=== PATIENT | male | born 1950 | race Caucasian/White ===

== ENCOUNTER 2024-07-17 08:38 | Inpatient (IN) | payer MEDICARE, MEDICAID ==
[~2024-07-17] VITALS: Ht 170.2 cm; Wt 65.8 kg
[2024-07-17] MEDS: ACETAMINOPHEN 325MG TABLET PO ONE (09:07)
[2024-07-17 09:24] LABS: BASOPHILS % 0.7 % (0.0-2.0); HEMATOCRIT. 42.2 % (42.0-52.0); HEMOGLOBIN. 14.2 g/dL (14.0-18.0); LYMPHOCYTES % 19.3 % (20.0-50.0); MEAN CORPUSCULAR HEMOGLOBIN 31.3 pg (28.0-32.0); MEAN CORPUSCULAR HGB CONC 33.6 g/dL (31.0-37.0); MEAN CORPUSCULAR VOLUME 93.1 fL (80.0-94.0); MEAN PLATELET VOLUME 8.7 fl (7.4-10.4); PLATELET 171 x1000/uL (130-400); RED BLOOD CELL COUNT 4.53 mill/uL (4.7-6.1); RED CELL DISTRIBUTION WIDTH 13.5 % (11.6-14.6)
[2024-07-17 09:29] LABS: CHLORIDE 110 mEq/L (98-107); POTASSIUM 4.3 mEq/L (3.5-5.1); SODIUM 144 mEq/L (136-145)
[2024-07-17 09:30] LABS: CARBON DIOXIDE 33 mEq/L (21-32)
[2024-07-17 09:31] LABS: CALCIUM 9.5 mg/dL (8.7-10.4)
[2024-07-17 09:35] LABS: CREATININE 0.9 mg/dL (0.6-1.3); GLUCOSE 82 mg/dL (70-105)
[2024-07-17 09:36] LABS: UREA NITROGEN BLOOD 17 mg/dL (9-23)
[2024-07-17 09:37] LABS: ALANINE AMINOTRANSFERASE 22 IU/L (10-49); ASPARTATE AMINOTRANSFERASE 38 IU/L (<34)
[2024-07-17 09:38] LABS: BILIRUBIN TOTAL 0.4 mg/dL (0.1-1.0); PROTEIN TOTAL 7.2 g/dL (6.0-8.3)
[2024-07-17] MEDS ORDERED: ONDANSETRON HCL 4MG/2ML INJ IV PRN (10:15)
[2024-07-17] MEDS ORDERED: IPRATROPIUM/ALBUTEROL 0.5-3(2.5)MG/3ML NEB HHN PRN (10:15)
[2024-07-17] MEDS ORDERED: GUAIFENESIN 200MG/10ML SUGAR FREE UDC PO PRN (10:15)
[2024-07-17] MEDS ORDERED: DOCUSATE SODIUM 100MG CAPSULE PO PRN (10:15)
[2024-07-17] MEDS ORDERED: SODIUM CHLORIDE 0.9% 1,000 ML IV SCH (10:15)
[2024-07-17] MEDS ORDERED: CLONIDINE 0.1MG TABLET PO PRN (10:15)
[2024-07-17] MEDS ORDERED: ACETAMINOPHEN 325MG TABLET PO PRN (10:15)
[2024-07-17] MEDS ORDERED: DEXTROSE 50% WATER 50ML SYRINGE IV PRN (10:30)
[2024-07-17 11:56] LABS: TRIGLYCERIDE 61 mg/dL (0-150)
[2024-07-17 11:57] LABS: LDL CHOLESTEROL 72 mg/dL (5-100)
[2024-07-17 11:58] LABS: CHOLESTEROL 176 mg/dL (<200); HDL CHOLESTEROL 99 mg/dL (>55); PHOSPHORUS 2.7 mg/dL (2.5-4.9)
[2024-07-17 12:18] LABS: HEPATITIS B SURFACE ANTIGEN NEGATIVE (Negative)
[2024-07-17 12:39] LABS: HEPATITIS A AB IGM NEGATIVE (Negative)
[2024-07-17 12:40] LABS: HEPATITIS B CORE AB IGM NEGATIVE (Negative); HEPATITIS C AB NON REACTIVE (Neg) (Negative)
[2024-07-17] MEDS: BLOOD SUGAR DIAGNOSTIC STRIP TEST SCH (13:19)
[2024-07-17] MEDS: INSULIN LISPRO 100 UNITS/ML SUBCUT SCH (13:20)
[2024-07-17] MEDS: DEXT 5%/0.45% NACL 1000ML 1,000 ML IV SCH (13:24)
[2024-07-17] MEDS ORDERED: ENOXAPARIN 40MG/0.4ML SYR SUBCUT SCH (16:00)
[2024-07-17 16:26] LABS: PROTHROMBIN TIME 10.8 sec (9.6-11.0)
[2024-07-17 16:29] LABS: TROPONIN I HIGH SENSITIVITY 40 ng/L (3.0-53)
[2024-07-17 16:30] LABS: CREATINE KINASE 232 IU/L (46-171)
[2024-07-17 20:00] VITALS: BP 163/78; PULSE 79; RESP 18; TEMP 36.44736; TEMP 36.4736; O2SAT 96
[2024-07-17] MEDS: FAMOTIDINE 20MG TABLET PO SCH (21:00)
[2024-07-18 00:11] VITALS: BP 149/69; PULSE 82; RESP 18; TEMP 36.55848; O2SAT 96
[2024-07-18 00:45] LABS: TROPONIN I HIGH SENSITIVITY 38 ng/L (3.0-53)
[2024-07-18 00:46] LABS: CREATINE KINASE 206 IU/L (46-171)
[2024-07-18 04:00] VITALS: BP 167/75; PULSE 75; RESP 20; TEMP 36.72516; O2SAT 96
[2024-07-18 06:28] LABS: HEMATOCRIT 45.9 % (42.0-52.0); HEMOGLOBIN 15.3 g/dL (14.0-18.0); MEAN CORPUSCULAR HEMOGLOBIN 30.9 pg (28.0-32.0); MEAN CORPUSCULAR HGB CONC 33.4 g/dL (31.0-37.0); MEAN CORPUSCULAR VOLUME 92.4 fL (80.0-94.0); PLATELET 158 x1000/uL (130-400); RED BLOOD CELL COUNT 4.97 mill/uL (4.7-6.1); RED CELL DISTRIBUTION WIDTH 13.5 % (11.6-14.6); WHITE BLOOD COUNT 9.7 x1000/uL (4.5-11.0)
[2024-07-18 06:37] LABS: CHLORIDE 104 mEq/L (98-107); POTASSIUM 3.9 mEq/L (3.5-5.1); SODIUM 136 mEq/L (136-145)
[2024-07-18 06:38] LABS: CALCIUM 9.1 mg/dL (8.7-10.4); CARBON DIOXIDE 25 mEq/L (21-32)
[2024-07-18] MEDS ORDERED: VANCOMYCIN HCL 1GM VIAL ONE (06:38)
[2024-07-18] MEDS ORDERED: LIDOCAINE HCL/EPINEPHRINE 1%-EPI 1:100,000 20ML VIAL ONE (06:38)
[2024-07-18] MEDS ORDERED: POLYMYXIN B SULFATE 500000 UNITS/VIAL ONE (06:38)
[2024-07-18 06:43] LABS: CREATININE 0.8 mg/dL (0.6-1.3); GLUCOSE 137 mg/dL (70-105); UREA NITROGEN BLOOD 12 mg/dL (9-23)
[2024-07-18] MEDS ORDERED: ETOMIDATE 2MG/ML 10ML VIAL IV ONE (07:28)
[2024-07-18] MEDS ORDERED: DEXAMETHASONE 4MG/ML 1ML VIAL ONE (07:28)
[2024-07-18] MEDS ORDERED: ONDANSETRON HCL 4MG/2ML INJ ONE (07:28)
[2024-07-18] MEDS ORDERED: FENTANYL CITRATE/PF 50MCG/ML 2ML VIAL ONE (07:50)
[2024-07-18] MEDS ORDERED: MIDAZOLAM HCL 2 MG/2 ML VIAL ONE (07:50)
[2024-07-18] MEDS ORDERED: PROPOFOL 200MG/20ML VIAL IV ONE (07:54)
[2024-07-18] MEDS ORDERED: HYDROMORPHONE HCL/PF 2MG/ML INJ IV PRN (08:00)
[2024-07-18] MEDS ORDERED: ONDANSETRON HCL 4MG/2ML INJ IV PRN ×2 (08:00→08:45)
[2024-07-18] MEDS ORDERED: ROPIVACAINE HCL 1% 20 ML VIAL EPI ONE (08:22)
[2024-07-18] MEDS ORDERED: NALOXONE HCL 0.4MG/ML VIAL IV PRN (08:30)
[2024-07-18] MEDS ORDERED: LABETALOL 5MG/ML 4ML INJ IV PRN (08:45)
[2024-07-18] MEDS ORDERED: MEPERIDINE HCL/PF 25MG/ML CPJ IV PRN (08:45)
[2024-07-18] MEDS ORDERED: AMLODIPINE 2.5MG TABLET PO SCH (09:00)
[2024-07-18] MEDS: HYDROMORPHONE HCL/PF 1MG/ML INJ IV PRN (09:52)
[2024-07-18 11:40] VITALS: BP_SYST 149; BP_SYST 150; BP_DIAS 91; BP_DIAS 93; PULSE 63; PULSE 69; RESP 18; TEMP 37.11408; O2SAT 96; O2SAT 97
[2024-07-18] MEDS: AMLODIPINE 5MG TABLET PO SCH (11:47)
[2024-07-18] MEDS: HYDROCODONE/ACETAMINOPHEN 5/325MG TABLET PO PRN (13:43)
[2024-07-18] MEDS: CEFAZOLIN 1000MG PREMIX 50 ML IV SCH (13:43)
[2024-07-18] MEDS ORDERED: HYDROMORPHONE HCL/PF 1MG/ML INJ IV PRN (15:52)
[2024-07-18 16:30] VITALS: BP 160/91; PULSE 77; RESP 18; TEMP 37.16964; O2SAT 98
[2024-07-19 04:00] VITALS: BP 153/69; PULSE 81; RESP 18; TEMP 36.22512; O2SAT 97
[2024-07-19 08:22] LABS: BASOPHILS % 0.3 % (0.0-2.0); EOSINOPHILS % 0.7 % (0.0-5.0); HEMATOCRIT. 44.5 % (42.0-52.0); HEMOGLOBIN. 14.6 g/dL (14.0-18.0); LYMPHOCYTES % 7.4 % (20.0-50.0); MEAN CORPUSCULAR HEMOGLOBIN 30.1 pg (28.0-32.0); MEAN CORPUSCULAR HGB CONC 32.8 g/dL (31.0-37.0); MEAN CORPUSCULAR VOLUME 91.7 fL (80.0-94.0); MEAN PLATELET VOLUME 9.2 fl (7.4-10.4); MONOCYTES % 10.3 % (2.0-8.0); NEUTROPHILS % 81.3 % (40.0-76.0); PLATELET 149 x1000/uL (130-400); RED BLOOD CELL COUNT 4.85 mill/uL (4.7-6.1); RED CELL DISTRIBUTION WIDTH 13.7 % (11.6-14.6); WHITE BLOOD COUNT 8.4 x1000/uL (4.5-11.0)
[2024-07-19 08:25] LABS: CHLORIDE 102 mEq/L (98-107); POTASSIUM 3.7 mEq/L (3.5-5.1); SODIUM 136 mEq/L (136-145)
[2024-07-19 08:26] LABS: CALCIUM 8.6 mg/dL (8.7-10.4); CARBON DIOXIDE 28 mEq/L (21-32)
[2024-07-19 08:31] LABS: CREATININE 0.9 mg/dL (0.6-1.3); GLUCOSE 157 mg/dL (70-105)
[2024-07-19 08:32] LABS: UREA NITROGEN BLOOD 15 mg/dL (9-23)
[2024-07-19] MEDS: ENOXAPARIN 40MG/0.4ML SYR SUBCUT SCH (09:16)
[2024-07-19] MEDS: AMLODIPINE 10MG TABLET PO SCH (09:17)
[2024-07-19] MEDS: HYDRALAZINE 20MG/ML VIAL IV PRN (09:18)
[2024-07-19 10:49] VITALS: BP 166/91; PULSE 80; RESP 18; TEMP 36.61404; O2SAT 96
[2024-07-19 12:07] VITALS: BP 152/73; PULSE 80; RESP 18; TEMP 36.61404; O2SAT 96
[2024-07-19] MEDS: HYDROCODONE/ACETAMINOPHEN 5/325MG TABLET PO PRN (12:09)
[2024-07-19 16:40] VITALS: BP 160/90; PULSE 76; RESP 18; TEMP 36.9474; O2SAT 98
[2024-07-19 20:00] VITALS: BP 117/63; PULSE 78; RESP 19; TEMP 36.3918; O2SAT 97
[2024-07-20] VITALS: BP 130/68; PULSE 70; RESP 20; RESP 70; TEMP 37.00296; O2SAT 98
[2024-07-20 04:00] VITALS: BP 139/68; PULSE 72; RESP 20; TEMP 36.50292; O2SAT 98
[2024-07-20 08:00] VITALS: BP 127/60; PULSE 69; PULSE 99; RESP 19; TEMP 36.22512; O2SAT 98
[2024-07-20 08:12] LABS: CHLORIDE 102 mEq/L (98-107); POTASSIUM 3.9 mEq/L (3.5-5.1); SODIUM 135 mEq/L (136-145)
[2024-07-20 08:13] LABS: CALCIUM 8.4 mg/dL (8.7-10.4); CARBON DIOXIDE 27 mEq/L (21-32)
[2024-07-20 08:18] LABS: CREATININE 0.8 mg/dL (0.6-1.3); GLUCOSE 131 mg/dL (70-105); UREA NITROGEN BLOOD 16 mg/dL (9-23)
[2024-07-20 08:43] LABS: BASOPHILS % 0.5 % (0.0-2.0); EOSINOPHILS % 2.1 % (0.0-5.0); HEMATOCRIT. 40.6 % (42.0-52.0); HEMOGLOBIN. 13.9 g/dL (14.0-18.0); LYMPHOCYTES % 9.4 % (20.0-50.0); MEAN CORPUSCULAR HEMOGLOBIN 31.5 pg (28.0-32.0); MEAN CORPUSCULAR HGB CONC 34.2 g/dL (31.0-37.0); MEAN CORPUSCULAR VOLUME 92.1 fL (80.0-94.0); PLATELET 152 x1000/uL (130-400); RED BLOOD CELL COUNT 4.41 mill/uL (4.7-6.1); RED CELL DISTRIBUTION WIDTH 13.6 % (11.6-14.6); WHITE BLOOD COUNT 7.4 x1000/uL (4.5-11.0)
[2024-07-20 12:00] VITALS: BP 129/66; PULSE 70; RESP 19; TEMP 36.72516; O2SAT 100
[2024-07-20 16:00] VITALS: BP 133/70; PULSE 77; RESP 19; TEMP 36.6696; O2SAT 98
[2024-07-20 20:45] VITALS: BP 138/67; PULSE 71; RESP 16; TEMP 36.89184; O2SAT 95
[2024-07-21] VITALS: BP 141/70; PULSE 76; RESP 19; TEMP 36.3918; O2SAT 97
[2024-07-21 04:00] VITALS: BP 149/73; PULSE 60; RESP 18; TEMP 36.3918; O2SAT 100
[2024-07-21 08:04] VITALS: BP 140/72; PULSE 56; RESP 19; TEMP 36.9474; O2SAT 95
[2024-07-21 08:48] LABS: BASOPHILS % 0.5 % (0.0-2.0); EOSINOPHILS % 2.6 % (0.0-5.0); HEMOGLOBIN. 13.6 g/dL (14.0-18.0); LYMPHOCYTES % 11.7 % (20.0-50.0); MEAN CORPUSCULAR HEMOGLOBIN 30.2 pg (28.0-32.0); MEAN CORPUSCULAR HGB CONC 32.3 g/dL (31.0-37.0); MEAN CORPUSCULAR VOLUME 93.3 fL (80.0-94.0); MEAN PLATELET VOLUME 8.4 fl (7.4-10.4); MONOCYTES % 12.5 % (2.0-8.0); NEUTROPHILS % 72.7 % (40.0-76.0); PLATELET 182 x1000/uL (130-400); RED BLOOD CELL COUNT 4.51 mill/uL (4.7-6.1); RED CELL DISTRIBUTION WIDTH 13.3 % (11.6-14.6); WHITE BLOOD COUNT 5.9 x1000/uL (4.5-11.0)
[2024-07-21 08:55] LABS: CARBON DIOXIDE 31 mEq/L (21-32); CHLORIDE 102 mEq/L (98-107); SODIUM 138 mEq/L (136-145)
[2024-07-21 08:56] LABS: CALCIUM 8.7 mg/dL (8.7-10.4)
[2024-07-21 09:00] LABS: CREATININE 0.9 mg/dL (0.6-1.3)
[2024-07-21 09:01] LABS: GLUCOSE 161 mg/dL (70-105); UREA NITROGEN BLOOD 17 mg/dL (9-23)
[2024-07-21 11:39] VITALS: BP 135/61; PULSE 56; RESP 19; TEMP 36.72516; O2SAT 96
[2024-07-21 16:42] VITALS: BP 119/52; PULSE 67; RESP 19; TEMP 37.11408; O2SAT 98
[2024-07-21 20:00] VITALS: BP 131/63; PULSE 71; RESP 20; TEMP 37.28076; O2SAT 97
[2024-07-22] VITALS: BP 136/67; PULSE 77; RESP 18; TEMP 37.00296; O2SAT 98
[2024-07-22] MEDS: ACETAMINOPHEN 325MG TABLET PO PRN (00:30)
[2024-07-22 04:00] VITALS: BP 139/71; PULSE 55; RESP 18; TEMP 37.16964; O2SAT 98
[2024-07-22 07:46] LABS: HEMATOCRIT 42.6 % (42.0-52.0); HEMOGLOBIN 13.8 g/dL (14.0-18.0); MEAN CORPUSCULAR HEMOGLOBIN 30.1 pg (28.0-32.0); MEAN CORPUSCULAR HGB CONC 32.4 g/dL (31.0-37.0); MEAN CORPUSCULAR VOLUME 92.9 fL (80.0-94.0); PLATELET 199 x1000/uL (130-400); RED BLOOD CELL COUNT 4.58 mill/uL (4.7-6.1); RED CELL DISTRIBUTION WIDTH 13.4 % (11.6-14.6); WHITE BLOOD COUNT 5.7 x1000/uL (4.5-11.0)
[2024-07-22 07:49] LABS: CARBON DIOXIDE 31 mEq/L (21-32); CHLORIDE 103 mEq/L (98-107); POTASSIUM 4.4 mEq/L (3.5-5.1); SODIUM 139 mEq/L (136-145)
[2024-07-22 07:51] LABS: CALCIUM 9.1 mg/dL (8.7-10.4)
[2024-07-22 07:55] LABS: CREATININE 0.9 mg/dL (0.6-1.3); GLUCOSE 106 mg/dL (70-105); UREA NITROGEN BLOOD 14 mg/dL (9-23)
[2024-07-22 07:58] VITALS: BP 140/70; PULSE 51; RESP 18; TEMP 36.61404; O2SAT 96
[2024-07-22 11:35] VITALS: BP 122/57; PULSE 64; RESP 19; TEMP 36.9474; O2SAT 97
[2024-07-22] MEDS ORDERED: AMLO10TA80 PO (13:05)
[2024-07-22 16:07] VITALS: BP 141/67; PULSE 56; RESP 18; TEMP 36.9474; O2SAT 98
[2024-07-22 20:07] VITALS: BP 121/76; PULSE 68; RESP 20; TEMP 37.11408; O2SAT 96
[2024-07-23] VITALS: BP 131/78; PULSE 68; RESP 18; TEMP 36.61404; O2SAT 98
[2024-07-23 04:00] VITALS: BP 146/75; PULSE 55; RESP 20; TEMP 37.28076; O2SAT 97
[2024-07-23 04:44] VITALS: BP 135/67; PULSE 60; TEMP 98.6; O2SAT 98
[2024-07-23 07:16] LABS: CALCIUM 9.2 mg/dL (8.7-10.4); CARBON DIOXIDE 30 mEq/L (21-32); CHLORIDE 101 mEq/L (98-107); POTASSIUM 4.1 mEq/L (3.5-5.1); SODIUM 137 mEq/L (136-145)
[2024-07-23 07:22] LABS: CREATININE 0.8 mg/dL (0.6-1.3); GLUCOSE 108 mg/dL (70-105); UREA NITROGEN BLOOD 16 mg/dL (9-23)
[2024-07-23 07:34] LABS: HEMATOCRIT 42.2 % (42.0-52.0); HEMOGLOBIN 14.1 g/dL (14.0-18.0); MEAN CORPUSCULAR HGB CONC 33.4 g/dL (31.0-37.0); MEAN CORPUSCULAR VOLUME 92.6 fL (80.0-94.0); PLATELET 235 x1000/uL (130-400); RED BLOOD CELL COUNT 4.56 mill/uL (4.7-6.1); RED CELL DISTRIBUTION WIDTH 13.1 % (11.6-14.6)
[2024-07-23 07:52] VITALS: BP 135/67; PULSE 60; RESP 18; TEMP 37.00296; O2SAT 97
[2024-07-23 11:58] VITALS: BP 114/60; PULSE 71; RESP 19; TEMP 36.89184; O2SAT 96
== END 2024-07-23 16:34 | DRG 480 ==
LOC: ER 09:14 → EDBD 09:14 → 7WST 09:52 → EDBEDREQ 09:54 → EDBEDREQTM 09:54 → EDBEDREQSVC 10:10
PROVIDERS: ADMIT Internal Medicine; ATTEND Internal Medicine
PROC: 0QH634Z Insertion of Internal Fixation Device into Right Upper Femur, Percutaneous Approach (ICD-10-PCS; principal; 2024-07-18)
DX: S72.011A Unspecified intracapsular fracture of right femur, initial encounter for closed fracture (principal); G92.8 Other toxic encephalopathy; M62.82 Rhabdomyolysis; G81.91 Hemiplegia, unspecified affecting right dominant side; Z59.00 Homelessness unspecified; I69.322 Dysarthria following cerebral infarction; I69.320 Aphasia following cerebral infarction; I10 Essential (primary) hypertension; R73.03 Prediabetes; Z79.899 Other long term (current) drug therapy; W01.0XXA Fall on same level from slipping, tripping and stumbling without subsequent striking against object, initial encounter; Y93.89 Activity, other specified; Y92.89 Other specified places as the place of occurrence of the external cause; Y99.8 Other external cause status
CPT/HCPCS: 36415; 71045; 72192; 73501; 73502; 73560; 73630; 73700; 76000; 80048; 80053; 80061; 80320; 82550; 82962; 83036; 83735; 83880; 84100; 84439; 84443; 84484; 85025; 85027; 86705; 86709; 87340; 92523; 92610; 93970; 97110; 97116; 97162; 97166; 97530; 97535; 99291; J0360; J0690; J1100; J1171; J1650; J1815; J2250; J2405; J2704; J2795; J3010; J3370; J3490; J7030; C1713; G0480